=== PATIENT | female | born 1990 | race Caucasian/White ===

== ENCOUNTER 2018-03-26 11:54 | Emergency (ER) | payer MEDICAID | END 2018-03-26 13:30 | disposition home or self-care (01) | LOC: FTE 11:54 | DX: M54.16 Radiculopathy, lumbar region (principal) | CPT/HCPCS: 99284; Z7502 ==

== ENCOUNTER 2018-05-28 22:15 | Emergency (ER) | payer MEDICAID | END 2018-05-29 02:42 | disposition home or self-care (01) | LOC: FTE 22:15 | DX: R07.89 Other chest pain (principal) | CPT/HCPCS: 71045; 93005; 99284-25 ==

== ENCOUNTER 2018-05-31 07:54 | Emergency (ER) | payer MEDICAID ==
[2018-05-31] MEDS: SOD CHLORIDE 0.9% 1,000 ML IV (08:44)
[2018-05-31] MEDS: ONDANSETRON 4 MG INJ IV (08:44)
[2018-05-31 09:07] LABS: ADD MAN DIFF? NO
[2018-05-31 09:13] LABS: WHITE BLOOD COUNT 12.3 10^3/ul (4.8-10.8)
[2018-05-31 09:13] LABS: EOSINOPHILS % 0.2 % (0.0-7.0); HEMATOCRIT 43.1 % (37.0-47.0); HEMOGLOBIN 14.1 g/dl (12.0-16.0); LYMPHOCYTES % 13.1 % (15.0-51.0); MEAN CORPUSCULAR HEMOGLOBIN 28.8 pg (29.0-33.0); MEAN CORPUSCULAR HGB CONC 32.7 g/dl (32.0-37.0); MEAN PLATELET VOLUME 9.9 fl (7.4-10.4); MONOCYTES % 3.3 % (0.0-11.0); NEUTROPHILS % 82.7 % (39.0-77.0); PLATELET COUNT 286 10^3/UL (140-415); RED CELL DISTRIBUTION WIDTH 13.7 % (11.5-14.5)
[2018-05-31 09:14] LABS: BASOPHILS % 0.3 % (0.0-2.0); LYMPHOCYTES # 1.6 10^3/ul (0.8-2.9); MONOCYTE # 0.4 10^3/ul (0.3-0.9); NEUTROPHIL # 10.1 10^3/ul (1.6-7.5)
[2018-05-31 09:31] LABS: ALANINE AMINOTRANSFERASE 23 IU/L (13-69); ALBUMIN 4.7 g/dl (3.3-4.9); ALKALINE PHOSPHATASE 68 IU/L (42-121); ANION GAP 14 (8-16); ASPARTATE AMINO TRANSFERASE 25 IU/L (15-46); BILIRUBIN,INDIRECT 0.3 mg/dl (0-1.1); BILIRUBIN,TOTAL 0.3 mg/dl (0.2-1.3); BLOOD UREA NITROGEN 12 mg/dl (7-20); CALCIUM 9.2 mg/dl (8.4-10.2); CARBON DIOXIDE 25 mmol/L (21-31); CHLORIDE 106 mmol/L (97-110); CREATININE 0.65 mg/dl (0.44-1.00); GLUCOSE 106 mg/dl (70-220); LIPASE 63 U/L (23-300); POTASSIUM 3.8 mmol/L (3.5-5.1); SODIUM 141 mmol/L (135-144); TOTAL PROTEIN 8.3 g/dl (6.1-8.1)
[2018-05-31 09:49] LABS: PROTIME 12.2 Sec (11.9-14.9)
[2018-05-31 09:50] LABS: PARTIAL THROMBOPLASTIN TIME 27.5 Sec (25.0-35.0)
[2018-05-31 10:43] LABS: ADD UMIC NO; UR ASCORBIC ACID NEGATIVE (NEGATIVE); UR BILIRUBIN (Dip) NEGATIVE (NEGATIVE); UR BLOOD (Dip) NEGATIVE (NEGATIVE); UR CLARITY CLEAR (CLEAR); UR COLOR COLORLESS (YELLOW); UR GLUCOSE (Dip) NEGATIVE (NEGATIVE); UR KETONES (Dip) TRACE mg/dL (NEGATIVE); UR LEUKOCYTE ESTERASE (Dip) NEGATIVE Leu/ul (NEGATIVE); UR NITRITE (Dip) NEGATIVE (NEGATIVE); UR SPECIFIC GRAVITY (Dip) 1.003 (1.003-1.030); UR TOTAL PROTEIN (Dip) NEGATIVE (NEGATIVE); UR UROBILINOGEN (Dip) NEGATIVE (NEGATIVE)
[2018-05-31 11:54] LABS: MONOTEST Negative (NEG)
== END 2018-05-31 12:21 | disposition home or self-care (01) ==
LOC: FTE 07:54
DX: N95.1 Menopausal and female climacteric states (principal)
CPT/HCPCS: 36415; 80053; 81003; 83690; 84703; 85025; 85610; 85730; 86308; 96374; 99284-25

== ENCOUNTER 2018-10-24 18:40 | Emergency (ER) | payer MEDICAID ==
[2018-10-24] MEDS ORDERED: IBUPROFEN 600 MG TAB PO (21:00)
[2018-10-24] MEDS: ACETAMINOPHEN 325 MG TAB PO (21:04)
== END 2018-10-24 23:24 | disposition home or self-care (01) ==
LOC: FTE 18:40
DX: S61.306A Unspecified open wound of right little finger with damage to nail, initial encounter (principal); X58.XXXA Exposure to other specified factors, initial encounter; Y92.9 Unspecified place or not applicable
CPT/HCPCS: 29130; 73140; 99283-25